=== PATIENT | female | born 1990 | race Caucasian/White ===

== ENCOUNTER 2016-07-04 03:23 | Emergency (ER) | payer OTHER ==
[~2016-07-04] VITALS: Ht 152.4 cm; Wt 81.8 kg
[~2016-07-04 03:23] MED LIST: CIPR-231 PO; ONDA4TAB9 PO
[2016-07-04 03:29] VITALS: BP 108/81; PULSE 79; RESP 16; O2SAT 99
[2016-07-04] MEDS ORDERED: diphenhydrAMINE 25 mg Capsule PO ONE (04:30)
[2016-07-04 05:20] LABS: BASOPHILS % (AUTO) 0.6 % (0-3); EOSINOPHILS % (AUTO) 1.5 % (0-5); MONOCYTES % (AUTO) 5.6 % (4-12); Mean Corpuscular Hemoglobin 25.4 pg (27.0-35.0); Mean Corpuscular Volume 79.1 fL (81-100); NEUTROPHILS % (AUTO) 60.1 % (40-74); Platelet Count 341 bil/L (150-400)
[2016-07-04] MEDS ORDERED: LORA10CA PO (05:20)
[2016-07-04] MEDS ORDERED: FAMO20T PO (05:20)
[2016-07-04] MEDS ORDERED: PRE20 PO (05:20)
[2016-07-04] MEDS ORDERED: BETA15CR3 TP (05:20)
[2016-07-04 05:25] VITALS: BP 108/81; PULSE 79; RESP 16; O2SAT 99
[2016-07-04] MEDS ORDERED: Triamcinolone 0.1% 30 Gm Cream TOPICAL ONE (05:25)
--- NOTE | 2016-07-04 06:05 | ED.REPORT ---
HPI-Rash / Abscess Date of Service Jul 04, 2016 ED Provider: Jared Butler MD 25-year-old female with a recent past medical history of C. difficile colitis and diarrhea, presents with itchy little bumps 2 days over various parts of her body. These bumps are localized primarily to her feet and her hands with additional areas on her thighs, buttocks and upper arms, chest, upper back perioral area. Approximately 4 days ago she had a sudden onset of general malaise with reported fevers that resolved by that evening. Approximately 2 days later she developed red painful/tingly erythemic circular macules on the palms of her hands and soles of her feet. She also developed multiple areas of raised (bumps) on her upper arms and chest buttocks and legs. 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 She is not taking any hormone medicines, does not have a Mirena control device, takes no daily meds, has no known allergies. Nursing Notes Stated Complaint: RASH Chief Complaint: Skin Rash/Abscess Allergies: Coded Allergies: No Known Allergies (Verified , 07/04/16) Scheduled Betamethasone Dipropionate (Betamethasone Dipropionate) 15 Gm Cream..g. 15 GM TP TID Famotidine (Pepcid) 20 Mg Tablet 20 MG PO DAILY Loratadine (Claritin) 10 Mg Capsule 10 MG PO DAILY Prednisone (PredniSONE) 20 Mg Tablet 40 MG PO DAILY General Time Seen by MD: 03:45 Chief Complaint Rash, Red area Past Medical History Past Medical History Notes: PCP: Dr. Estevez Past Medical History Chronic anemia D&C on 07/25/2014 C. 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 Alcohol Use: Denies alcohol use Drug Use: THC Other Social History: Lives alone Ambulatory Status Independent Review of Systems Basic Review of Systems Hematologic: No bleeding Neurologic: NL mental status Psychiatric: Normal thought content Constitutional: Reports: Chills, Denies: Fever Eyes: Denies: Photophobia, Visual loss bilateral Ears / Nose / Throat: Denies: Earache bilateral, Hearing loss bilateral, Mouth pain, Nose bleeding, Sinus problem, Sore throat, Throat pain, Throat swelling, Tongue pain Respiratory: Denies: Shortness of breath, Wheezing Cardiovascular: Denies: Chest pain GI: Denies: Abdominal pain Skin: Reports Itching, Reports Rash Physical Exam General: Mild distress, well-developed, well-nourished, appropriately interactive HEENT: Normocephalic, atraumatic. External ears without defect. Pupils equal, round, and reactive to light and accommodation. Anicteric sclerae, moist conjunctivae, and no lid lag. Oropharynx free of erythema and cobble stoning with moist mucosa. Neck: Supple with full range of motion. No jugular venous distension. Cardiovascular: Regular rate and rhythm with no murmurs, rubs, or gallops appreciated Pulmonary: Clear to auscultation bilaterally with no crackles, wheezes, or rhonchi. Normal respiratory effort with no use of accessory muscles. Abdomen: Bowel tones present. Soft, nontender, nondistended. No hepatosplenomegaly or masses appreciated. Extremities: No clubbing, cyanosis, edema, or lymphadenopathy appreciated. Skin: Normal temperature, turgor, and texture. Patient has multiple small circular erythematous, with few target-like appearing lesions on palms of hands and soles of feet. Patient also has small raised erythemic areas on upper arms , back and the perioral area. Neurological: Cranial nerves grossly intact. Normal muscle strength, tone, and bulk. Reflexes, coordination, and sensory function within normal limits. No known gait impairment. Psychiatric: Normal mood and affect. Alert and oriented to person, place, and time. Initial Vital Signs Vital Signs (First) Date Time Temp Pulse Resp B/P Pulse Ox O2 Delivery O2 Flow Rate FiO2 07/04/16 03:29 36.1 79 16 108/81 99 Room Air Interpretation & Diagnostics Lab Results Interpretation Result Diagram: 07/04/16 0455 07/04/16 0455 Test 07/04/16 03:45 07/04/16 04:55 Hold Urine Received (Received) White Blood Count 5.3th/mm3 (3.8-10.1) Red Blood Count 4.69mil/mm3 (3.90-5.20) Hemoglobin 11.9g/dL (12.0-15.6) Hematocrit 37.1% (35.0-46.0) Mean Corpuscular Volume 79.1fL (81-100) Mean Corpuscular Hemoglobin 25.4pg (27.0-35.0) Mean Corpuscular Hemoglobin Concent 32.1% (32.0-37.0) Red Cell Distribution Width 15.1% (12.3-15.4) Platelet Count 341bil/L (150-400) Neutrophils (%) (Auto) 60.1% (40-74) Lymphocytes (%) (Auto) 32.0% (14-46) Monocytes (%) (Auto) 5.6% (4-12) Eosinophils (%) (Auto) 1.5% (0-5) Basophils (%) (Auto) 0.6% (0-3) Erythrocyte Sedimentation Rate 20mm/hr (0-32) Sodium Level 138mEq/L (134-144) Potassium Level 4.1mEq/L (3.5-5.2) Chloride Level 104mEq/L (97-108) Carbon Dioxide Level 21mmol/L (18-29) Blood Urea Nitrogen 17mg/dL (6-20) Creatinine 0.44mg/dL (0.57-1.00) Estimat Glomerular Filtration Rate 252mL/min (>59) Glucose Level 99mg/dL (60-99) Calcium Level 8.7mg/dL (8.5-10.1) Total Bilirubin 0.2mg/dL (0.0-1.2) Aspartate Amino Transf (AST/SGOT) 21U/L (0-50) Alanine Aminotransferase (ALT/SGPT) 24U/L (0-32) Alkaline Phosphatase 80U/L (25-150) Total Protein 7.0g/dL (6.4-8.4) Albumin 3.6g/dL (3.4-5.0) Hold [place] Top Tube Received (Received) Re-Eval/Medical Decision Med Decision/Clinical Course Differential diagnosis includes contact dermatitis, erythema multiforme, erythema nodosa, spcj-bhog-mri-mouth disease, other viral exanthems, syphilis, autoimmune disease. Lab work included a CBC which was unremarkable, CMP also unremarkable. Patient discharged with pending labs are RPR, Rh factor, and CHANO screen. She was given Benadryl, ibuprofen, Pepcid, loratadine and triamcinolone topical while in ED and sent home with prescriptions for dexamethasone, loratadine, famotidine and prednisone. Re-Evaluation/Progress : Patient Status: Condition improved Discharge & Departure Impression: Primary Impression: Eczema Eczema type: unspecified Qualified Code: L30.9 - Dermatitis, unspecified Disposition: Home Discharge Condition All VS Reviewed: Yes Condition: Stable Patient Instructions: Atopic Dermatitis (ED) Additional Instructions: This is an inflammatory reaction in the skin, commonly caused by foods. It can be a viral infection. In either case it will fade. Commonest offending foods include nuts, berries, milk protein, egg protein, soy protein, antibiotics concealed in commercial meat and milk, food colorings, tomatoes, and many other foods. You are not allergic to all of these things, but likely only one. avoid all of the above for the next few weeks, and introduce any one element in small quantity, and only one at a time, and with several days between any new introduction. Apply Kenalog cream to your hands and feet three times daily. Claritin daily for ten days. Pepcid daily for ten days. Follow-up with your doctor in the office. Labs will be available for your doctor over this next week. Attending Statement As attending of record for this patient, I conducted an independent history and physical exam, and agree with the documentation as per the resident note above, and as amended. PRASHANTH RICKS DO Jul 04, 2016 05:42 Jared Butler MD Jul 04, 2016 06:36
== END 2016-07-04 05:25 ==
LOC: SED 03:23
DX: L30.9 Dermatitis, unspecified (principal); R53.81 Other malaise; R50.9 Fever, unspecified